=== PATIENT | male | born 1955 | race Two or more races ===

== ENCOUNTER 2021-03-06 15:07 | Emergency (ER) | payer MEDICARE ==
[~2021-03-06] VITALS: Ht 180.3 cm; Wt 100.0 kg
[2021-03-06] MEDS ORDERED: fentaNYL PF VIAL 100 MCG/2 ML VIAL IVP ONE (16:15)
[2021-03-06 16:53] LABS: BASO % 0 % (0-3); EOS % 1 % (0-3); HEMATOCRIT 39.7 % (39.0-53.0); HEMOGLOBIN 13.5 g/dL (13.0-17.5); LYMPH # 1.4 x10^3/uL (1.0-4.8); LYMPH % 18 % (24-48); MEAN CORPUSCULAR HEMOGLOBIN 32 pg (25-35); MEAN CORPUSCULAR HGB CONC 34 g/dL (31-37); MEAN CORPUSCULAR VOLUME 95 fL (79-100); MONO # 0.8 x10^3/uL (0.0-1.1); MONO % 10 % (0-9); NEUT # 5.4 x10^3/uL (1.8-7.7); NEUT % 71 % (31-73); PLATELET COUNT 274 x10^3/uL (140-400); RED BLOOD COUNT 4.19 x10^6/uL (4.30-5.70); RED CELL DISTRIBUTION WIDTH 14.9 % (11.5-14.5); WHITE BLOOD COUNT 7.6 x10^3/uL (4.0-11.0)
[2021-03-06 16:54] LABS: BILIRUBIN,URINE NEGATIVE (NEG); CLARITY,URINE CLEAR; COLOR,URINE YELLOW; NITRITE,URINE NEGATIVE (NEG); PROTEIN,URINE NEGATIVE (NEG-TRACE)
[2021-03-06 17:04] LABS: BACTERIA,URINE 0 /HPF (0-FEW); RBC,URINE 0 /HPF (0-2); WBC,URINE 0 /HPF (0-4)
[2021-03-06 17:06] LABS: CALCIUM 8.7 mg/dL (8.5-10.1); CREATININE 1.5 mg/dL (0.7-1.3); POTASSIUM 3.5 mmol/L (3.5-5.1)
[2021-03-06 17:12] LABS: ALBUMIN 3.4 g/dL (3.4-5.0); TOTAL BILIRUBIN 0.3 mg/dL (0.2-1.0); TOTAL PROTEIN 6.7 g/dL (6.4-8.2)
--- NOTE | 2021-03-06 17:27 | PHYS DOC ---
Past Medical History Additional Past Medical Histor: chronic back pain (EBONY GRANT APRN) Past Surgical History: No Surgical History (EBONY GRANT APRN) General Adult EDM: Chief Complaint: TESTICULAR PAIN OR INJURY HPI: HPI: Patient is a 65-year-old male presents to emergency department complaining of testicular pain and swelling for the past month. Patient reports he has seen his primary care physician 2 weeks ago who told him to take ibuprofen for pain. Patient reports an 8 out of 10 pain after taking an 800 mg Motrin 2 hours ago. Patient denies allergies to medications, denies trauma to his testicles, denies numbness or tingling to his genitals, denies rashes or open lesions to his genitals. Patient denies burning on urination, denies increased urinary frequency, denies urinary pressure. Patient denies chest pains, recent fever or chills, denies abdominal pain, nausea, vomiting, diarrhea, denies seeing blood in his stool or in his urine. Patient denies urinary retention or loss of bowel or bladder. Patient denies other physical complaints or physical concerns. (EBONY GRANT APRN) Review of Systems: Review of Systems: 14 body systems of review of systems have been reviewed. See HPI for pertinent positives and negative responses, otherwise all other systems are negative, nonpertinent or noncontributory. Constitutional: Negative except as outlined in HPI above. Skin: Negative except as outlined in HPI above. Eyes: Negative except as outlined in HPI above. HENT: Negative except as outlined in HPI above. Respiratory: Negative except as outlined in HPI above. Cardiovascular: Negative except as outlined in HPI above. GI: Negative except as outlined in HPI above. : Negative except as outlined in HPI above. Musculoskeletal: Negative except as outlined in HPI above. Integument: Negative except as outlined in HPI above. Neurologic: Negative except as outlined in HPI above. Endocrine: Negative except as outlined in HPI above. Lymphatic: Negative except as outlined in HPI above. Psychiatric: Negative except as outlined in HPI above. (EBONY GRANT APRN) Heart Score: C/O Chest Pain: No Risk Factors: Risk Factors: DM, Current or recent (<one month) smoker, HTN, HLP, family history of CAD, obesity. Risk Scores: Score 0 - 3: 2.5% MACE over next 6 weeks - Discharge Home Score 4 - 6: 20.3% MACE over next 6 weeks - Admit for Clinical Observation Score 7 - 10: 72.7% MACE over next 6 weeks - Early Invasive Strategies (EBONY GRANT APRN) Current Medications: Current Medications Medications (Trade) Dose Ordered Sig/Pavan Start Time Stop Time Status Last Admin Dose Admin Fentanyl Citrate (Fentanyl 2ml Vial) 75 mcg 1X ONCE 03/06/21 16:15 03/06/21 16:51 DC 03/06/21 17:01 75 MCG (EBONY GRANT APRN) Allergies: Allergies: Allergies Coded Allergies Type Severity Reaction Last Updated Verified No Known Drug Allergies 03/06/21 No (EBONY GRANT APRN) Physical Exam: PE: Constitutional: Well developed, well nourished, no acute distress, non-toxic appearance. 65-year-old male in no apparent distress. HENT: Normocephalic, atraumatic. Eyes: Conjunctiva normal, no discharge. Neck: Normal range of motion. Cardiovascular: Distal cap refill less than 2 seconds, no cyanosis appreciated. Lungs & Thorax: Patient is in no respiratory distress, no adventitious lung sounds appreciated. Abdomen: Bowel sounds normal, soft, no tenderness, no masses, no pulsatile masses. No bruising or skin discoloration of the abdomen. Skin: Warm, dry, no erythema, no rash. Back: No tenderness, no CVA tenderness. Extremities: No tenderness, no cyanosis, no clubbing, ROM intact, no edema. Neurologic: Alert and oriented X 3, normal motor function, normal sensory function, no focal deficits noted. Psychologic: Affect normal, judgement normal, mood normal. : Testicular exam performed with ED nurse at bedside for contact assembler, scrotal sac erythematous, no swelling appreciated, no testicular swelling appreciated, pain elicited with palpation of right epididymis no skin rashes, no lesions, no discharge from urethra. No hernias appreciated. (EBONY GRANT APRN) Current Patient Data: Labs: Laboratory Tests Test 03/06/21 16:34 White Blood Count 7.6 x10^3/uL (4.0-11.0) Red Blood Count 4.19 x10^6/uL (4.30-5.70) L Hemoglobin 13.5 g/dL (13.0-17.5) Hematocrit 39.7 % (39.0-53.0) Mean Corpuscular Volume 95 fL (79-100) Mean Corpuscular Hemoglobin 32 pg (25-35) Mean Corpuscular Hemoglobin Concent 34 g/dL (31-37) Red Cell Distribution Width 14.9 % (11.5-14.5) H Platelet Count 274 x10^3/uL (140-400) Neutrophils (%) (Auto) 71 % (31-73) Lymphocytes (%) (Auto) 18 % (24-48) L Monocytes (%) (Auto) 10 % (0-9) H Eosinophils (%) (Auto) 1 % (0-3) Basophils (%) (Auto) 0 % (0-3) Neutrophils # (Auto) 5.4 x10^3/uL (1.8-7.7) Lymphocytes # (Auto) 1.4 x10^3/uL (1.0-4.8) Monocytes # (Auto) 0.8 x10^3/uL (0.0-1.1) Eosinophils # (Auto) 0.0 x10^3/uL (0.0-0.7) Basophils # (Auto) 0.0 x10^3/uL (0.0-0.2) Urine Collection Type Unknown Urine Color Yellow Urine Clarity Clear Urine pH 6.0 (<5.0-8.0) Urine Specific [place] 1.020 (1.000-1.030) Urine Protein Negative mg/dL (NEG-TRACE) Urine Glucose (UA) Negative mg/dL (NEG) Urine Ketones (Stick) Negative mg/dL (NEG) Urine Blood Negative (NEG) Urine Nitrite Negative (NEG) Urine Bilirubin Negative (NEG) Urine Urobilinogen Dipstick 1.0 mg/dL (0.2 mg/dL) Urine Leukocyte Esterase Negative (NEG) Urine RBC 0 /HPF (0-2) Urine WBC 0 /HPF (0-4) Urine Bacteria 0 /HPF (0-FEW) Urine Mucus Slight /LPF Sodium Level 140 mmol/L (136-145) Potassium Level 3.5 mmol/L (3.5-5.1) Chloride Level 103 mmol/L (98-107) Carbon Dioxide Level 30 mmol/L (21-32) Anion Gap 7 (6-14) Blood Urea Nitrogen 35 mg/dL (8-26) H Creatinine 1.5 mg/dL (0.7-1.3) H Estimated GFR (Cockcroft-Gault) 47.0 BUN/Creatinine Ratio 23 (6-20) H Glucose Level 124 mg/dL (70-99) H Lactic Acid Level 1.0 mmol/L (0.4-2.0) Calcium Level 8.7 mg/dL (8.5-10.1) Total Bilirubin 0.3 mg/dL (0.2-1.0) Aspartate Amino Transferase (AST) 14 U/L (15-37) L Alanine Aminotransferase (ALT) 24 U/L (16-63) Alkaline Phosphatase 33 U/L (46-116) L Total Protein 6.7 g/dL (6.4-8.2) Albumin 3.4 g/dL (3.4-5.0) Albumin/Globulin Ratio 1.0 (1.0-1.7) Laboratory Tests 03/06/21 16:34 Laboratory Tests 03/06/21 16:34 Vital Signs: Vital Signs Date Time Temp Pulse Resp B/P (MAP) Pulse Ox O2 Delivery O2 Flow Rate FiO2 03/06/21 17:01 16 98 Room Air 03/06/21 16:05 97.7 78 125/80 (95) 97.7 (EBONY GRANT APRN) EKG: EKG: [] (EBONY GRANT APRN) Radiology/Procedures: Radiology/Procedures: PATIENT: [place] REAL ACCOUNT: [id number] : 1955 LOCATION: ER AGE: 65 SEX: M EXAM STATUS: PRE ER ORD. PHYSICIAN: EBONY GRANT APRN REASON: Testicular pain and swelling PROCEDURE: TESTICULAR/SCROTUM INDICATION: Reason: Testicular pain and swelling / Spl. Instructions: / History: COMPARISON: None. TECHNIQUE: Grayscale, color and spectral doppler ultrasound images obtained of the scrotum. FINDINGS: Right Testicle: 42 x 37 x 23 mm. Vascular flow is identified. Left Testicle: 40 x 33 x 21 mm. Vascular flow is identified. 5 mm right epididymal cyst. Small hydrocele. IMPRESSION: * Vascular flow is identified to the bilateral testicles. * Right epididymal cyst. Electronically signed by: Theodore Edwards MD (03/06/2021 6:14 PM) [id number] (EBONY GRANT APRN) Course & Med Decision Making: Course & Med Decision Making Pertinent Labs and Imaging studies reviewed. (See chart for details) 65-year-old male, vital signs reviewed, presents emergency department concerning testicular pain and swelling for the past month. Physical examination co ncerning for torsion versus hydrocele versus epididymitis versus other testicular process. Will order testicular/scrotal sonogram, CBC, CMP, urinalysis assay. Patient's urine is not infected, serum lab work unremarkable, testicular ultrasound concerning for right-sided varicocele with epididymal cyst, no concerning signs of torsion or other abnormality. discussed findings with patient, strict follow-up with primary care physician soon, patient reveals he has an appointment to be seen this coming Monday. Discussed with patient to keep appointment this Monday, this is a must. Return to ER precautions and concerns, patient is amenable to ED discharge planning. Discussed with the patient all findings and diagnostic testing as well as the need to follow-up with their primary care provider for further evaluation and treatment or return to the ED if any new or worsening symptoms. Strict return precautions were also discussed at length, the patient voiced understanding and agreement with the discharge planning. The patient was nontoxic in appearance, in no apparent distress, and hemodynamically stable at the time of disposition. (EBONY GRANT APRN) Course & Med Decision Making I have participated in the care of this patient and I have reviewed and agree with all pertinent clinical information above including history, exam, and recommendations. Danielito Tavarez DO (DANIELITO TAVAREZ DO) Jaimee Disclaimer: Jaimee Disclaimer: This electronic medical record was generated, in whole or in part, using a voice recognition dictation system. (EBONY GRANT APRN) Departure Departure Impression: Primary Impression: Testicular/scrotal pain Additional Impression: Abnormal finding on diagnostic imaging of testicle Disposition: HOME / SELF CARE / HOMELESS Condition: GOOD Referrals: LATASHA FLOWERS MD, VICENTE C MD Additional Instructions: You were seen today in the emergency department for pain of your testicles. A sonogram was performed today that did show a small cyst on your right testicle, I have provided you with the ultrasound report so that you can bring this with you to your next appointment with Dr. Carbajal this coming Monday. Please refrain from applying creams or other products to your testicles until otherwise told by Dr. Flowers. Your urinalysis did not show any concerning findings, you do not have a urinary tract infection. Your blood work did not show any concerning findings, there is no infectious process indicated. Return to the emergency department for worsening symptoms or other concerns. Thank you for visiting our Emergency Department. It was a pleasure taking care of you today in the emergency department and we appreciate you trusting us with your care. If any additional problems come up don't hesitate to return to visit us. Please follow up with your primary care provider so they can plan additional care if needed and know about the problem that you had. If symptoms worsen come back to the Emergency Department. Any concerning symptoms that start such as chest pain, shortness of air, weakness or numbness on one side of the body, running high fevers or any other concerning symptoms return to the ER. EMERGENCY DEPARTMENT GENERAL DISCHARGE INSTRUCTIONS Thank you for coming to [facility] Emergency Department (ED) today and trusting us with you care. We trust that you had a positive experience in our Emergency Department. If you wish to speak to the department management, you may call the Director at [phone]. YOUR FOLLOW UP INSTRUCTIONS ARE FOLLOWS: 1. Do you have a private Doctor? If you do not have a private doctor, please ask for a resource list of physicians or clinics that may be able to assist you with follow up care. 2. The Emergency Physicain has interpreted your x-rays. The X-Ray specialist will also review them. If there is a change in the findings, you will be notified in 48 hours when at all possible. 3. A lab test or culture has been done, your results will be reviewed and you will be notified if you need a change in treatment. ADDITIONAL INSTRUCTIONS AND INFORMATION: 1. Your care today has been supervised by a physician who is specially trained in emergency care. Many problems require more than one evaluation for a complete diagnosis and treatment. We recommend that you schedule your follow up appointment as recommended to ensure complete treatment of you illness or injury. If you are unable to obtain follow up care and continue to have a problem, or if your condition worsens, we recommend that you return to the ED. 2. We are not able to safely determine your condition over the phone nor are we able to give sound medical advice over the phone. For these safety reasons, if you call for medical advice we will ask you to come to the ED for further evaluation. 3. If you have any questions regarding these discharge instructions please call the ED at [phone]. SAFETY INFORMATION: In the interest of safety, wellness, and injury prevention; we encourage you to wear your sealbelt, if you smoke; quite smoking, and we encourage family to use a protective helmet for bicycling and other sporting events that present an increased risk for head injury. IF YOUR SYMPTOMS WORSEN OR NEW SYMPTOMS DEVELOP, OR YOU HAVE CONCERNS ABOUT YOUR CONDITION; OR IF YOUR CONDITION WORSENS WHILE YOU ARE WAITING FOR YOUR FOLLOW UP APPOINTMEN T; EITHER CONTACT YOUR PRIMARY CARE DOCTOR, THE PHYSICIAN WHOSE NAME AND NUMBER YOU WERE GIVEN, OR RETURN TO THE ED IMMEDIATELY. EBONY GRANT APRN Mar 06, 2021 17:27 DANIELITO TAVAREZ DO Mar 10, 2021 09:43
--- NOTE | 2021-03-06 18:16 | RAD ---
INDICATION: Reason: Testicular pain and swelling / Spl. Instructions: / History: COMPARISON: None. TECHNIQUE: Grayscale, color and spectral doppler ultrasound images obtained of the scrotum. FINDINGS: Right Testicle: 42 x 37 x 23 mm. Vascular flow is identified. Left Testicle: 40 x 33 x 21 mm. Vascular flow is identified. 5 mm right epididymal cyst. Small hydrocele. IMPRESSION: * Vascular flow is identified to the bilateral testicles. * Right epididymal cyst. Electronically signed by: Theodore Edwards MD (03/06/2021 6:14 PM) [id number]
[2021-03-06 18:59] VITALS: BP 116/70
== END 2021-03-06 19:32 | disposition home or self-care (01) ==
LOC: ER 15:07
DX: R93.811 Abnormal radiologic findings on diagnostic imaging of right testicle (principal); N50.811 Right testicular pain; G89.29 Other chronic pain
CPT/HCPCS: 36415; 76870; 80053; 81001; 83605; 85025; 96374; 99285; J3010